=== PATIENT | female | born 1955 | race Hispanic/Latino ===

== ENCOUNTER 2024-01-23 18:12 | Emergency (ER) | payer MEDICARE, OTHER ==
[~2024-01-23] VITALS: Ht 157.5 cm; Wt 69.4 kg
[~2024-01-23 18:12] MED LIST: METFORMIN HCL500 MG PO
[2024-01-23 18:40] VITALS: TEMP 97.9
[2024-01-23 19:31] VITALS: PULSE 67; RESP 16
[2024-01-23 19:54] LABS: BASOPHILS # (AUTO) 0.1 (0.0-0.1); BASOPHILS % 0.8 % (0.0-1.0); EOSINOPHILS # (AUTO) 0.3 (0.0-0.4); EOSINOPHILS % 4.3 % (0.0-6.0); HEMATOCRIT 40.3 % (34.2-44.1); HEMOGLOBIN 13.3 g/dL (12.0-16.0); LYMPHOCYTES # (AUTO) 2.4 (1.0-3.2); LYMPHOCYTES % 32.7 % (18.0-39.1); MEAN CORPUSCULAR HEMOGLOBIN 31.7 pg (28-32); MONOCYTES # (AUTO) 0.6 (0.2-0.8); MONOCYTES % 7.9 % (4.4-11.3); NEUTROPHILS % 53.5 % (38.7-80.0); PLATELET COUNT 264 x10e3/uL (140-360); RED CELL DISTRIBUTION WIDTH 12.3 % (11.7-14.4); WHITE BLOOD COUNT 7.47 x10e3/uL (4.8-10.8)
[2024-01-23] MEDS: SODIUM CHLORIDE 0.9% 1000ML 1,000 ML IV STA (20:04)
[2024-01-23 20:10] LABS: ANION GAP 17.3 mmol/L (8-16); BILIRUBIN,TOTAL 0.3 mg/dL (0.2-1.2); CALCIUM 9.7 mg/dL (8.4-10.2); CREATININE, SERUM 0.83 mg/dL (0.57-1.11); POTASSIUM 4.3 mmol/L (3.5-5.1)
[2024-01-23 20:16] LABS: TROPONIN I 0.001 ng/mL (0-0.300)
[2024-01-23 20:18] LABS: AMPHETAMINES SCREEN,URINE NEGATIVE (NEGATIVE); BENZODIAZEPINES SCREEN,URINE NEGATIVE (NEGATIVE); CANNABINOIDS SCREEN,URINE NEGATIVE (NEGATIVE); COCAINE SCREEN,URINE NEGATIVE (NEGATIVE); METHADONE SCREEN, URINE NEGATIVE (NEGATIVE); OPIATES SCREEN,URINE NEGATIVE (NEGATIVE); PHENCYCLIDINE SCREEN,URINE NEGATIVE (NEGATIVE)
[2024-01-23 21:34] VITALS: BP 145/60; PULSE 72; RESP 16; TEMP 98.1; O2SAT 99
== END 2024-01-23 21:37 | disposition home or self-care (01) ==
LOC: ER 18:19
DX: R42 Dizziness and giddiness (principal); R53.81 Other malaise; E11.65 Type 2 diabetes mellitus with hyperglycemia; I10 Essential (primary) hypertension; E03.9 Hypothyroidism, unspecified; E78.5 Hyperlipidemia, unspecified; R94.31 Abnormal electrocardiogram [ECG] [EKG]; Z85.828 Personal history of other malignant neoplasm of skin
CPT/HCPCS: 36415; 70450; 71045; 80053; 80307; 80320; 82550; 83880; 84484; 85025; 93005; 99284